=== PATIENT | male | born 1950 | race Caucasian/White ===

== ENCOUNTER 2018-06-11 13:55 | Inpatient (IN) ==
[2018-06-11] MEDS ORDERED: 0.9 % Sodium Chloride 1,000 ML IVC ONE (14:25)
--- NOTE | 2018-06-11 14:31 | Emergency Department Note ---
Disposition Clinical Impression: Colitis Elevated WBC count Qualifiers: Leukocytosis type: unspecified Qualified Code(s): D72.829 - Elevated white blood cell count, unspecified Disposition: Admitted As Inpatient Condition: Good [facility]: [facility]Primary Care Provider[facility] - Anurag Lopez DO [Family Provider] - Forms: ED Satisfaction Letter, Work/School Release Time of Disposition: 15:48 General Adult HPI - General Chief complaint: ED Abdominal Pain Stated complaint: ischemic IBS Time Seen by Provider: 06/11/18 14:02 Source: patient, EMS Limitations: no limitations Nursing Notes Reviewed: Yes Vital Signs Reviewed: Yes - History of Present Illness HPI Narrative: 67 year old white male presents for weakness, diarrhea, and blurred vision for 1 week. Patient is sent from [place] where they did a workup and found colitis on CT abd/pelvis. Patient states "normal" diarrhea, no blood or mucus. Reports associated symptoms of feeling tired and abdominal bloating "on the surface." Denies any pain. Blurred vision occurs when he wakes up in the morning. Things look blurry for a few minutes, and then it clears up. Also reports lightheadedness and dizziness when he gets up, bends over, or looks up. Explains that dizziness means he feels he could fall. Denies any fall. Denies feeling unbalanced, syncope, or spinning sensation. Medical history includes diabetes, diabetic retinopathy, and vertigo. Denies nausea, vomiting, abdominal pain, fever, weight loss, recent illness, swelling, auditory changes. Pain Scale: 0 - Related Data Home Medications Medication Instructions Recorded Confirmed Ascorbate Calcium [Vitamin C] 500 mg PO DAILY 06/11/18 06/11/18 Aspirin [Adult Aspirin] 81 mg PO DAILY 06/11/18 06/11/18 Atorvastatin [Lipitor] 40 mg PO HS 06/11/18 06/11/18 Cholecalciferol (D-3) [Vitamin D] 5,000 unit PO DAILY 06/11/18 06/11/18 Insulin Glargine,Hum.rec.anlog 20 - 25 unit SQ QPM 06/11/18 06/11/18 [Lantus Solostar] Insulin Glargine,Hum.rec.anlog 50 unit SQ QAM 06/11/18 06/11/18 [Lantus Solostar] Lisinopril [Zestril] 10 mg PO QAM 06/11/18 06/11/18 Lisinopril [Zestril] 20 mg PO QPM 06/11/18 06/11/18 Metformin HCl [Glucophage] 1,000 mg PO BID 06/11/18 06/11/18 Metoprolol Succinate [Toprol Xl] 50 mg PO DAILY 06/11/18 06/11/18 Multivit-Min/FA/Lycopen/Lutein 1 tab PO DAILY 06/11/18 06/11/18 [Centrum Silver Tablet] glipiZIDE [Glipizide] 10 mg PO DAILY 06/11/18 06/11/18 Allergies Allergy/AdvReac Type Severity Reaction Status Date / Time No Known Allergies Allergy Verified 06/11/18 14:13 All systems ED: reviewed and negative except as stated. Past Medical History - Past Medical History Medical history: Reports: diabetes, hyperlipidemia, hypertension, myocardial infarction - Social History Smoking Status: Former smoker Alcohol use: Reports: rarely Drug use: Reports: none Physical Exam - General Limitations: no limitations General appearance: alert, in no apparent distress - Head Head exam: atraumatic, normocephalic, normal inspection - Eye Eye exam: Present: normal appearance, PERRL, EOMI - ENT ENT exam: normal exam, normal oropharynx, mucous membranes moist - Neck Neck exam: Present: normal inspection, full ROM, trachea midline - Chest Chest inspection: Present: normal inspection, symmetric chest wall rise - Respiratory Respiratory exam: Present: normal lung sounds bilaterally - Cardiovascular Cardiovascular exam: Present: regular rate, normal rhythm, normal heart sounds - Abdominal Exam Abdominal exam: Present: soft, Non-Tender. Absent: tenderness, distention, guarding, rebound, rigidity - Extremities Exam Extremities exam: Present: normal inspection, full ROM. Absent: tenderness, pedal edema - Neurological Exam Neurological exam: Present: alert, oriented X3, CN II-XII intact - Psychiatric Psychiatric exam: Present: normal affect, normal mood - Skin Skin exam: Present: warm, dry, intact, normal color Course Course Narrative: 67 year old male presents for diarrhea, weakness, and blurred vision for 1 week. Patient is sent to ED from [place] urgent care for colitis. Patient denies any abdominal pain. Patient is alert and oriented, hemodynamically stable, and of non-toxic appearance. On exam, abdomen is soft and nondistended with normal bowel sounds. There is no pain to palpation. Medical records from [place] urgent care reviewed. Creatinine elevated 1.32, GFR 57.2. Metabolic panel otherwise unremarkable. WBC elevated 25.2 with elevated neutrophils 83.7. Lactic acid 1.6. UA negative. CXR unremarkable. CT abd/pelvis reveals diffuse colonic wall thickening with surrounding inflammatory change and mild pericolonic adenopathy. Could be infectious colitis, Crohn's disease, ulcerative colitis, or ischemic colitis. IVF fluids given at [place] urgent care. Medical history of sarcoid. Denies history of leukemia or lymphoma. Will order EKG, and troponin and provide IVF. - Reevaluation(s) Reevaluation #1: EKG shows no signs of ischemia or infarction. Troponin negative. Will check C. diff. Will admit for colitis and elevated WBC with left shift. Spoke with hospitalist Dr. Rand who agrees to admit. Dr. Rand recommends starting IV flagyl pending C.diff results. Time: 15:46 Vital Signs Temperature 98.2 F 06/11/18 13:56 Pulse Rate 81 06/11/18 13:56 Respiratory Rate 17 06/11/18 13:56 Blood Pressure 148/69 06/11/18 13:56 O2 Sat by Pulse Oximetry 99 06/11/18 13:56 Temperature 98.2 F 06/11/18 13:56 Pulse Rate 81 06/11/18 13:56 Respiratory Rate 17 06/11/18 13:56 Blood Pressure 148/69 06/11/18 13:56 O2 Sat by Pulse Oximetry 99 06/11/18 13:56 Oxygen Delivery Oxygen Delivery Room Air Medical Decision Making - Medical Records Medical records reviewed: Yes I reviewed the patient's medical records. - Lab Data Lab results reviewed: Yes I reviewed the patient's lab results. Lab Results 06/11/18 Range/Units 14:35 Troponin I < 0.03 (< 0.04) ng/mL - Radiology Data Radiology results reviewed: Yes I reviewed the patient's radiology results. - EKG Data EKG #1 EKG attestation: Yes I reviewed and interpreted this EKG. EKG results narrative: EKG 06/11/2018 14:52. Sinus rhythm. Heart rate 69. No ST segment elevation or depression. No comparison EKG.
--- NOTE | 2018-06-11 14:42 | Emergency Department Note ---
Disposition Clinical Impression: Colitis, Elevated WBC count Disposition: Admitted As Inpatient Condition: Good General Adult HPI - General Chief complaint: ED Abdominal Pain Stated complaint: ischemic IBS Time Seen by Provider: 06/11/18 14:02 Source: patient, EMS Limitations: no limitations Nursing Notes Reviewed: Yes Vital Signs Reviewed: Yes - History of Present Illness Pain Scale: 0 - Related Data Home Medications Medication Instructions Recorded Confirmed Ascorbate Calcium [Vitamin C] 500 mg PO DAILY 06/11/18 06/11/18 Aspirin [Adult Aspirin] 81 mg PO DAILY 06/11/18 06/11/18 Atorvastatin [Lipitor] 40 mg PO HS 06/11/18 06/11/18 Cholecalciferol (D-3) [Vitamin D] 5,000 unit PO DAILY 06/11/18 06/11/18 Insulin Glargine,Hum.rec.anlog 20 - 25 unit SQ QPM 06/11/18 06/11/18 [Lantus Solostar] Insulin Glargine,Hum.rec.anlog 50 unit SQ QAM 06/11/18 06/11/18 [Lantus Solostar] Lisinopril [Zestril] 10 mg PO QAM 06/11/18 06/11/18 Lisinopril [Zestril] 20 mg PO QPM 06/11/18 06/11/18 Metformin HCl [Glucophage] 1,000 mg PO BID 06/11/18 06/11/18 Metoprolol Succinate [Toprol Xl] 50 mg PO DAILY 06/11/18 06/11/18 Multivit-Min/FA/Lycopen/Lutein 1 tab PO DAILY 06/11/18 06/11/18 [Centrum Silver Tablet] glipiZIDE [Glipizide] 10 mg PO DAILY 06/11/18 06/11/18 Allergies Allergy/AdvReac Type Severity Reaction Status Date / Time No Known Allergies Allergy Verified 06/11/18 14:13 Past Medical History - Past Medical History Medical history: Reports: diabetes, hyperlipidemia, hypertension, myocardial infarction - Social History Smoking Status: Former smoker Alcohol use: Reports: rarely Drug use: Reports: none Physical Exam - General Limitations: no limitations General appearance: alert, in no apparent distress Course Vital Signs Temperature 98.2 F 06/11/18 13:56 Pulse Rate 81 06/11/18 13:56 Respiratory Rate 17 06/11/18 13:56 Blood Pressure 148/69 06/11/18 13:56 O2 Sat by Pulse Oximetry 99 06/11/18 13:56 Temperature 98.2 F 06/11/18 13:56 Pulse Rate 81 06/11/18 13:56 Respiratory Rate 17 06/11/18 17:01 Blood Pressure 128/57 06/11/18 17:01 O2 Sat by Pulse Oximetry 99 06/11/18 13:56 Oxygen Delivery Oxygen Delivery Room Air Medical Decision Making - MDM Narrative Medical decision making narrative: 1536 hrs: will order C.diff and admit. - Lab Data Lab Results 06/11/18 06/11/18 Range/Units 14:35 16:42 Troponin I < 0.03 (< 0.04) ng/mL Stl C. diff Tox B Gene Positive A (Negative) Attestation Statement - Attestation Attestation: This documentation is done with the assistance of Dragon dictation. Despite efforts made to ensure accuracy, there may be inaccuracies in director part or spelling and typographical errors. I examined this patient and my medical decision-making was reviewed with the Resident Physician. I agree with the documented findings, disposition and treatment plan as described except to the extent set forth below. Patient seen and evaluated on arrival Dr. Recio and myself, I agree with her evaluation and management plan, supervise care the patient's stay. Patient presents today with the [facility] they told us he had ischemic colitis. However he is not having much abdominal pain he has had some vomiting and diarrhea. They did a scan and lab work there. He has a leukocytosis greater than and then 25,000. His CT look like colitis with multiple differentials. But these were not confirmed for ischemic colitis. With his exam here and does not appear there is having any severe pain. We are going to get a troponin EKG on him then we will bring him into the hospital. For further management disposition.
[2018-06-11] MEDS ORDERED: MetroNIDAZOLE 500 MG/100 ML 500 MG/100 ML BAG IVPB ONE (15:44)
[2018-06-11] MEDS: 0.9 % Sodium Chloride w KCl 20 MEQ/1,000 ML MLS IVC SCH (18:39)
[2018-06-11] MEDS: *HR* Metformin 500 MG TABLET PO SCH (18:40)
[2018-06-11] MEDS: Cholestyramine 4 GM POWD.PACK PO SCH ×2 (18:45→22:34)
[2018-06-11 18:52] LABS: Basophils # 0.1 K/mcL (0.0-0.2); Basophils % 0.3 %; Eosinophils # 0.2 K/mcL (0.0-0.6); Eosinophils % 0.9 %; Hematocrit 38.4 % (37.5-50.1); Hemoglobin 13.7 g/dL (12.9-16.9); Immature Granulocytes % 0.8 % (0-4); Lymphocytes # 3.1 K/mcL (0.6-4.6); Lymphocytes % 14.8 %; Mean Corpuscular HGB Conc 35.7 g/dL (31.6-35.5); Mean Corpuscular Hemoglobin 31.4 pg (28.0-33.3); Mean Corpuscular Volume 88.1 fL (83.0-100.0); Mean Platelet Volume 10.5 fL (9.4-12.4); Monocytes # 1.4 K/mcL (0.0-1.3); Monocytes % 6.8 %; Neutrophils # 16.1 K/mcL (1.6-8.9); Platelet Count 315 K/mcL (140-400); Red Blood Count 4.36 M/mcL (4.19-5.50); Red Cell Distribution Width 13.8 % (11.5-14.5); Segmented Neutrophils % 76.4 %
[2018-06-11] MEDS ORDERED: *HR* Dextrose 50 % in Water (Syg) 50 ML SYRINGE IVP PRN (18:56)
[2018-06-11] MEDS ORDERED: Dextrose Gel 15 GM/37.5 ML TUBE PO PRN ×2 (18:56)
[2018-06-11] MEDS ORDERED: D5% in Water 1,000 ML IVC PRN (18:56)
[2018-06-11 19:05] LABS: BUN/Creatinine Ratio 32 (6-26); Blood Urea Nitrogen 28 mg/dL (8-23); Carbon Dioxide 16 mEq/L (23-29); Chloride 113 mEq/L (98-107); Glucose 59 mg/dL (70-105); Magnesium 1.6 mg/dL (1.6-2.6); Osmolality,Calculated 287 (280-300); Potassium 4.5 mEq/L (3.5-5.1); Sodium 137 mEq/L (136-145); eGFR For Non-African Americans > 60 (> 60)
[2018-06-11] MEDS: Insulin LISPRO 300 UNITS/3 ML VIAL SQ SCH (20:40)
[2018-06-11] MEDS: Insulin DETEMIR 100 UNIT/ML X5UNITS SQ SCH (20:41)
[2018-06-11] MEDS ORDERED: MetroNIDAZOLE 500 MG/100 ML 500 MG/100 ML BAG IVPB SCH (22:00)
--- NOTE | 2018-06-11 22:12 | Internal Med History&Physical ---
Date of Encounter: 06/11/18 Time of Encounter: 19:00 Internal Medicine - H&P: HPI Chief complaint: DIARRHEA Admitted From: Home Plans for Post Hospital Care: Home History of present illness: Mr. Hays is a 67 year old male. HPI: The patient came to the emergency room complaining of diarrheastarted to 710 days ago. It is not associated with abdominal pain, nausea or vomiting. Denies fever and chills. It was initially at least 12 loose bowel movements per day; decrease to average 6 per day in the last few daysafter he has started using Imodium. The stool is very watery. He has average one loose bowel movement per nightin the last several days. He was diagnosed with irritable bowel syndrome at his 40s. He does have days when he may have a few/several loose bowel movements. He does not have her periods of constipation. The patient denies taking antibiotics in the last diffuse last several months. He denies visiting nursing homes recently. He has been treated for type 2 diabetes mellitus (insulin-dependent), hypertension and hyperlipidemia. He was diagnosed with a myocardial infarction about 15 years ago. They did cardiac catheterization; inserted to one coronary stent. He quit using tobacco in 1990. He used to smoke average one pack of cigarettes per day; started as a teenager. Denies alcohol use. Denies drugS use. REVIEW OF SYSTEMS: All 14 organ systems were reviewed by me with the patient. Positive and pertinent negative findings are listed above. The rest of organ systems is negative. PHYSICAL EXAM: Skin: Free of rash and discoloration. Eyes: Sclera is white. There is no discharge from eyes. ENMT: Oral/pharyngeal mucosa is normal in appearance. There is no discharge from nose or ears. Respiratory: Normal breath sounds with no crackles and wheezes bilaterally. CV: Heart is regular with no gallop or murmur. GI: Abdomen is rounded. It is soft with no palpable mass or visceromegaly. : There is no tenderness in patient's flanks bilaterally. Neuro exam: He has good strength in upper and lower extremities. He has normal eye movements. Psychiatric: He has normal affect. His thought process is appropriate to the situation. The patient is tested positive for C. difficile infection using stool C. difficile toxin B gene PCR. His CBC shows hemoglobin of 13.7 with WBC of 21.1 thousand. Sodium is 137 with potassium 4.5. Creatinine is 0.87. His random glucose is 59. Magnesium is 1.6. A/P: C. difficile colitis. We will continue diabetic diet. We will offer him IV fluids with potassium chloride and IV metronidazole. He will be on Questran 4 g by mouth 4 times a day. IBS. Presently covered by C. difficile infection. Type 2 diabetes mellitus, insulin-dependent. We will keep him on diabetic diet. Insulin Levemir and when necessary Humalog. Coronary artery disease. Stable/controlled. We will keep him on Toprol-XL, Lipitor and aspirin. Past Med Surg Social Fam HX - Past Medical History Medical history: diabetes, hyperlipidemia, hypertension, myocardial infarction Psychiatric history: no psych history - Past Surgical History Additional surgical history: Stent & Balloon. - Social History Smoking Status: Former smoker Packs per day: 1 Smokeless Tobacco Status: No Alcohol use: rarely Drug use: none - Family History Mother Living Status: Hx Family Cancer: Yes (throat cancer at 49) Father Living Status: Internal Medicine - H&P: Meds Ascorbate Calcium [Vitamin C] 500 mg PO DAILY 06/11/18 [History] Aspirin [Adult Aspirin] 81 mg PO DAILY 06/11/18 [History] Atorvastatin [Lipitor] 40 mg PO HS 06/11/18 [History] Cholecalciferol (D-3) [Vitamin D] 5,000 unit PO DAILY 06/11/18 [History] Insulin Glargine,Hum.rec.anlog [Lantus Solostar] 20 - 25 unit SQ QPM 06/11/18 [ History] Insulin Glargine,Hum.rec.anlog [Lantus Solostar] 50 unit SQ QAM 06/11/18 [ History] Lisinopril [Zestril] 10 mg PO QAM 06/11/18 [History] Lisinopril [Zestril] 20 mg PO QPM 06/11/18 [History] Metformin HCl [Glucophage] 1,000 mg PO BID 06/11/18 [History] Metoprolol Succinate [Toprol Xl] 50 mg PO DAILY 06/11/18 [History] Multivit-Min/FA/Lycopen/Lutein [Centrum Silver Tablet] 1 tab PO DAILY 06/11/18 [ History] glipiZIDE [Glipizide] 10 mg PO DAILY 06/11/18 [History] 3 Allergy/AdvReac Type Severity Reaction Status Date / Time No Known Allergies Allergy Verified 06/11/18 14:13 - Constitutional Vitals: Temp Pulse Resp BP Pulse Ox 98.1 F 74 17 119/65 99 06/11/18 19:10 06/11/18 19:10 06/11/18 19:10 06/11/18 19:10 06/11/18 19:10 General appearance: Present: A&O X 3, no acute distress, answers questions appropriately Exam: xxx Internal Med - H&P Results - Labs CBC & Chem 7: 06/11/18 18:41 06/11/18 18:41 Labs: Short CBC 06/11/18 Range/Units 18:41 WBC 21.1 H (4.3-11.1) K/mcL Hgb 13.7 (12.9-16.9) g/dL Hct 38.4 (37.5-50.1) % Plt Count 315 (140-400) K/mcL Neutrophils # 16.1 H (1.6-8.9) K/mcL BMP 06/11/18 18:41 Sodium 137 Potassium 4.5 Chloride 113 H Carbon Dioxide 16 L BUN 28 H Creatinine 0.87 Glucose 59 L Calcium 8.0 L - Assessment and plan (1) C. 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 Diabetes mellitus complication status: without complication Qualified Code(s): E11.9 - Type 2 diabetes mellitus without complications; Z79.4 - oysterman (current) use of insulin (4) CAD (coronary artery disease) Current Visit: Yes Status: Chronic Qualifiers: Coronary Disease-Associated Artery/Lesion type: [place] artery Associated angina: without angina Qualified Code(s): I25.10 - Atherosclerotic heart disease of [place] coronary artery without angina pectoris (5) HTN (hypertension) Current Visit: Yes Status: Acute Qualifiers: Hypertension type: essential hypertension Qualified Code(s): I10 - Essential (primary) hypertension - Time Spent With Patient Total time spent is greater than 50% in coordination of care (as documented) at patient's floor/unit and/or counseling patient: 25 - 35 minutes
[2018-06-12] MEDS: 0.9 % Sodium Chloride w KCl 20 MEQ/1,000 ML MLS IVC SCH (05:44)
[2018-06-12] MEDS ORDERED: MetroNIDAZOLE 500 MG/100 ML 500 MG/100 ML BAG IVPB SCH (06:00)
[2018-06-12 06:31] LABS: Basophils # 0.1 K/mcL (0.0-0.2); Basophils % 0.4 %; Eosinophils # 0.2 K/mcL (0.0-0.6); Eosinophils % 1.3 %; Hematocrit 35.8 % (37.5-50.1); Immature Granulocytes % 0.5 % (0-4); Lymphocytes # 2.3 K/mcL (0.6-4.6); Lymphocytes % 14.8 %; Mean Corpuscular HGB Conc 33.8 g/dL (31.6-35.5); Mean Corpuscular Hemoglobin 30.4 pg (28.0-33.3); Mean Corpuscular Volume 89.9 fL (83.0-100.0); Mean Platelet Volume 10.2 fL (9.4-12.4); Monocytes % 6.3 %; Neutrophils # 12.1 K/mcL (1.6-8.9); Platelet Count 321 K/mcL (140-400); Red Blood Count 3.98 M/mcL (4.19-5.50); Red Cell Distribution Width 13.9 % (11.5-14.5); Segmented Neutrophils % 76.7 %
[2018-06-12 06:32] LABS: Hemoglobin 12.1 g/dL (12.9-16.9)
[2018-06-12 06:55] LABS: BUN/Creatinine Ratio 28 (6-26); Blood Urea Nitrogen 23 mg/dL (8-23); Calcium 7.9 mg/dL (8.6-10.3); Carbon Dioxide 21 mEq/L (23-29); Chloride 112 mEq/L (98-107); Glucose 53 mg/dL (70-105); Magnesium 1.5 mg/dL (1.6-2.6); Osmolality,Calculated 289 (280-300); Sodium 139 mEq/L (136-145); eGFR For Non-African Americans > 60 (> 60)
[2018-06-12] MEDS: Insulin LISPRO 300 UNITS/3 ML VIAL SQ SCH ×4 (08:20→22:17)
[2018-06-12] MEDS: Insulin DETEMIR 100 UNIT/ML X5UNITS SQ SCH ×2 (08:47→22:24)
[2018-06-12] MEDS: Aspirin Enteric Coated 81 MG Tablet PO SCH (08:51)
[2018-06-12] MEDS: *HR* Metformin 500 MG TABLET PO SCH ×2 (08:51→17:23)
[2018-06-12] MEDS: Metoprolol XL (24 HR) Succ 50 MG TAB.ER.24H PO SCH (08:51)
[2018-06-12] MEDS: Multivit/Ca/Min/Fe/FA 1 TAB TABLET PO SCH (08:51)
[2018-06-12] MEDS: Cholestyramine 4 GM POWD.PACK PO SCH ×2 (08:52→12:49)
--- NOTE | 2018-06-12 08:58 | Electrocardiograph Report ---
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
--- NOTE | 2018-06-12 09:05 | Internal Med Progress Note ---
Hospitalist Progress Note - Encounter Date of Encounter: 06/12/18 Time of Encounter: 09:03 - Subjective Interval History: Patient seen and examined at bedside today, no acute changes overnight. Continued to report watery bowel movements reporting approximately 4-5 BMs every 24 hours. Denies any nausea, vomiting, abdominal pain. Admits to dizziness with change in position. Denies any further concerns at this time. Discussed plan of care, denies any further questions - Exam Vitals: Temp Pulse Resp BP Pulse Ox 97.6 F 78 17 153/73 97 06/12/18 07:27 06/12/18 07:27 06/12/18 07:27 06/12/18 07:27 06/12/18 07:27 Exam: PHYSICAL EXAMINATION: GENERAL: The patient is a well-developed, well-nourished male in no apparent distress. He is alert and oriented x3. HEENT: Head is normocephalic and atraumatic. Extraocular muscles are intact. Pupils are equal, round, and reactive to light and accommodation. Nares appeared normal. Mouth is well hydrated and without lesions. Mucous membranes are moist. Posterior pharynx clear of any exudate or lesions. NECK: Supple. No carotid bruits. No lymphadenopathy or thyromegaly. LUNGS: Clear to auscultation. HEART: Regular rate and rhythm without murmur. ABDOMEN: Soft, nontender, hyperactive bowel sounds. Mild abdominal distention EXTREMITIES: Without any cyanosis, clubbing, rash, lesions or edema. NEUROLOGIC: Cranial nerves II through XII are grossly intact. SKIN: No ulceration or induration present. - Assessment and Plan (1) C. difficile colitis Current Visit: Yes Status: Acute Assessment and Plan: Complaints of loose watery stools approximately 10-12 daily for the last 7-10 days Positive for C. difficile colitis Started on oral metronidazole 4 times a day--continues to have watery stools for -[address] patient on oral vancomycin today and discontinue metronidazole Continue with IVF, encourage oral intake Discharge when frequency of stools have improved Leukocytosis improving today, WBC 15.7, monitor BMP daily (2) IBS (irritable bowel syndrome) Current Visit: Yes Status: Chronic (3) Type 2 diabetes mellitus Current Visit: Yes Status: Acute Assessment and Plan: Per history periodic hypoglycemia on current regimen Decrease metformin dose to 500 mg twice a day Closely monitor blood glucose and adjust as necessary (4) CAD (coronary artery disease) Current Visit: Yes Status: Chronic Assessment and Plan: Continue aspirin, statin, cholestyramine, lisinopril and metoprolol (5) HTN (hypertension) Current Visit: Yes Status: Acute Assessment and Plan: Stable, continue anti-HTN medications DVT Prophylaxis: Increase activity - Time Spent with Patient Total time spent is greater than 50% in coordination of care (as documented) at patient's floor/unit and/or counseling patient: less than 15 minutes Plan of Care Discussed with: patient Internal Medicine: Result - Labs CBC & Chem 7: 06/12/18 05:58 06/12/18 05:58 Labs: Short CBC 06/11/18 06/12/18 Range/Units 18:41 05:58 WBC 21.1 H 15.7 H (4.3-11.1) K/mcL Hgb 13.7 12.1 L D (12.9-16.9) g/dL Hct 38.4 35.8 L (37.5-50.1) % Plt Count 315 321 (140-400) K/mcL Neutrophils # 16.1 H 12.1 H (1.6-8.9) K/mcL BMP 06/11/18 06/12/18 18:41 05:58 Sodium 137 139 Potassium 4.5 4.0 Chloride 113 H 112 H Carbon Dioxide 16 L 21 L BUN 28 H 23 Creatinine 0.87 0.81 Glucose 59 L 53 L Calcium 8.0 L 7.9 L Consult Discharge Plan - Plan [facility]errals: [facility] [Primary Care Provider] - Anurag Lopez DO [Family Provider] - (2) IBS (irritable bowel syndrome) Qualifiers: Irritable bowel syndrome type: with diarrhea Qualified Code(s): K58.0 - Irritable bowel syndrome with diarrhea (3) Type 2 diabetes mellitus Qualifiers: 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
[2018-06-12] MEDS: Vancomycin Oral Soln 125 MG/2.5 ML UDC PO SCH ×4 (09:38→22:24)
[2018-06-12] MEDS ORDERED: Lisinopril 20 MG TABLET PO SCH (18:00)
[2018-06-13 07:13] VITALS: BP 117/70
[2018-06-13] MEDS: *HR* Metformin 500 MG TABLET PO SCH (08:00)
[2018-06-13] MEDS: Vancomycin Oral Soln 125 MG/2.5 ML UDC PO SCH ×2 (08:00→12:06)
[2018-06-13] MEDS: Metoprolol XL (24 HR) Succ 50 MG TAB.ER.24H PO SCH (08:00)
[2018-06-13] MEDS: Aspirin Enteric Coated 81 MG Tablet PO SCH (08:00)
[2018-06-13] MEDS: Multivit/Ca/Min/Fe/FA 1 TAB TABLET PO SCH (08:00)
[2018-06-13] MEDS: Insulin LISPRO 300 UNITS/3 ML VIAL SQ SCH ×2 (08:00→12:06)
[2018-06-13] MEDS: Insulin DETEMIR 100 UNIT/ML X5UNITS SQ SCH (08:11)
[2018-06-13 09:17] LABS: Basophils # 0.1 K/mcL (0.0-0.2); Basophils % 0.5 %; Eosinophils # 0.2 K/mcL (0.0-0.6); Eosinophils % 1.5 %; Hematocrit 39.2 % (37.5-50.1); Hemoglobin 13.2 g/dL (12.9-16.9); Immature Granulocytes % 0.6 % (0-4); Lymphocytes # 2.2 K/mcL (0.6-4.6); Lymphocytes % 14.5 %; Mean Corpuscular HGB Conc 33.7 g/dL (31.6-35.5); Mean Corpuscular Hemoglobin 30.6 pg (28.0-33.3); Mean Platelet Volume 10.3 fL (9.4-12.4); Monocytes % 6.7 %; Neutrophils # 11.8 K/mcL (1.6-8.9); Platelet Count 366 K/mcL (140-400); Red Blood Count 4.31 M/mcL (4.19-5.50); Red Cell Distribution Width 13.8 % (11.5-14.5); Segmented Neutrophils % 76.2 %
[2018-06-13 09:28] LABS: BUN/Creatinine Ratio 21 (6-26); Blood Urea Nitrogen 17 mg/dL (8-23); Calcium 8.1 mg/dL (8.6-10.3); Carbon Dioxide 19 mEq/L (23-29); Chloride 110 mEq/L (98-107); Glucose 212 mg/dL (70-105); Osmolality,Calculated 290 (280-300); Potassium 4.5 mEq/L (3.5-5.1); Sodium 136 mEq/L (136-145); eGFR For Non-African Americans > 60 (> 60)
--- NOTE | 2018-06-13 14:31 | Discharge Summary ---
- NOTES TO OUTPATIENT PROVIDER Notes to Outpatient Provider: Presented with loose watery bowel movements for the last 7-10 days prior to arrival. Diagnosed with C. difficile colitis. Treated with oral vancomycin expected duration of treatment 10 days total Orders not resulted at time of discharge: Pending orders 06/14/18 04:00 Basic Metabolic Panel AM 0400 Complete Blood Count [HEME] AM 0400 06/15/18 04:00 Basic Metabolic Panel AM 0400 Complete Blood Count [HEME] AM 0400 06/16/18 04:00 Basic Metabolic Panel AM 0400 Complete Blood Count [HEME] AM 0400 Date of Encounter: 06/13/18 Time of Encounter: 14:25 - Discharge Diagnosis (1) C. difficile colitis Priority: Primary Status: Acute Assessment and Plan: Complaints of loose watery stools approximately 10-12 daily for the last 7-10 days Positive for C. difficile colitis Started on oral metronidazole 4 times a day--continues to have watery stools for -[address] patient on oral vancomycin today and discontinue metronidazole Continue with IVF, encourage oral intake Discharge when frequency of stools have improved Leukocytosis improving today, WBC 15.7, monitor BMP daily (2) IBS (irritable bowel syndrome) Priority: Secondary Status: Chronic Qualifiers: Irritable bowel syndrome type: with diarrhea Qualified Code(s): K58.0 - Irritable bowel syndrome with diarrhea (3) Type 2 diabetes mellitus Priority: Secondary Status: Acute Qualifiers: Diabetes mellitus terminal operator insulin use: with [facility]p use Diabetes mellitus complication status: without complication Qualified Code(s): E11.9 - Type 2 diabetes mellitus without complications; Z79.4 - senior living (current) use of insulin (4) CAD (coronary artery disease) Priority: Secondary Status: Chronic Qualifiers: Coronary Disease-Associated Artery/Lesion type: [place] artery Associated angina: without angina Qualified Code(s): I25.10 - Atherosclerotic heart disease of [place] coronary artery without angina pectoris (5) HTN (hypertension) Priority: Secondary Status: Acute Qualifiers: Hypertension type: essential hypertension Qualified Code(s): I10 - Essential (primary) hypertension Hospital course: Mr. Hays is a 67 year old male who presented with a 7-10 day history of diarrhea reporting approximately 12 loose bowel movements a day. He was discovered to have Clostridium difficile colitis and was subsequently treated with oral antibiotics. His condition improved throughout the stay and frequency in bowel movements decreased. He is being sent home on oral vancomycin 125 mg 4 times a day for 9 additional days. Patient is well hydrated and hemodynamically stable at time of discharge. He has had an uneventful hospital course without any complications. Leukocytosis improving at time of discharge. He has been afebrile and nontoxic appearing. Additionally while inpatient he was treated for type 2 diabetes with IV insulin and will be transitioned back to home insulin regimen. While inpatient he was found to be hypoglycemic at times. I have decreased his dose of oral hypoglycemics and provided education on such. While inpatient and continue his aspirin, statin, lisinopril and metoprolol for his coronary artery disease, these have been continued at discharge. Additionally, he has history of hypertension and his home anti-HTN medications were resumed while inpatient and will be resumed at discharge as well. I discussed with the patient potential complications and risks of diagnosis of Clostridium difficile and has been sent home with educational materials. The patient verbalized understanding denies any further questions. Instructed to return to the ED should his condition persists or worsen. Additionally, he has been instructed to follow-up with his PCP within 1 week of discharge. Discharge discussed with: patient, family, nurse - Time Spent with Patient Total time spent providing and/or coordinating discharge services: Less than 30 minutes - Discharge Medications Prescriptions: metFORMIN [Glucophage] 500 mg PO BIDWM 30 Days #60 tablet Vancomycin Oral Soln [Firvanq] 125 mg PO QID 10 Days #1 [facility] [place] Medications: Ascorbate Calcium [Vitamin C] 500 mg PO DAILY 06/11/18 [History] Aspirin [Adult Aspirin] 81 mg PO DAILY 06/11/18 [History] Atorvastatin [Lipitor] 40 mg PO HS 06/11/18 [History] Cholecalciferol (D-3) [Vitamin D] 5,000 unit PO DAILY 06/11/18 [History] Insulin Glargine,Hum.rec.anlog [Lantus Solostar] 20 - 25 unit SQ QPM 06/11/18 [ History] Insulin Glargine,Hum.rec.anlog [Lantus Solostar] 50 unit SQ QAM 06/11/18 [ History] Lisinopril [Zestril] 10 mg PO QAM 06/11/18 [History] Lisinopril [Zestril] 20 mg PO QPM 06/11/18 [History] Metoprolol Succinate [Toprol Xl] 50 mg PO DAILY 06/11/18 [History] Multivit-Min/FA/Lycopen/Lutein [Centrum Silver Tablet] 1 tab PO DAILY 06/11/18 [ History] glipiZIDE [Glipizide] 10 mg PO DAILY 06/11/18 [History] Vancomycin Oral Soln [Firvanq] 125 mg PO QID 10 Days #1 udc 06/13/18 [Rx] metFORMIN [Glucophage] 500 mg PO BIDWM 30 Days #60 tablet 06/13/18 [Rx] Allergies/Adverse Reactions: 3 Allergy/AdvReac Type Severity Reaction Status Date / Time No Known Allergies Allergy Verified 06/11/18 14:13 Date of admission: 06/11/18 18:17 Primary care physician: [facility] Discharging clinician: Wilmar Spencer Anticipated date of discharge: 06/13/18 - Constitutional Vitals: Temp Pulse Resp BP Pulse Ox 98.3 F 69 16 117/70 96 06/13/18 11:35 06/13/18 11:35 06/13/18 11:35 06/13/18 11:35 06/13/18 11:35 General appearance: Present: A&O X 3, no acute distress, answers questions appropriately Exam: PHYSICAL EXAMINATION: GENERAL: The patient is a well-developed, well-nourished male in no apparent distress. He is alert and oriented x3. HEENT: Head is normocephalic and atraumatic. Extraocular muscles are intact. Pupils are equal, round, and reactive to light and accommodation. Nares appeared normal. Mouth is well hydrated and without lesions. Mucous membranes are moist. Posterior pharynx clear of any exudate or lesions. NECK: Supple. No carotid bruits. No lymphadenopathy or thyromegaly. LUNGS: Clear to auscultation. HEART: Regular rate and rhythm without murmur. ABDOMEN: Soft, nontender, normal active bowel sounds. Mild abdominal distention, mild abdominal discomfort to palpation left and right lower quadrant EXTREMITIES: Without any cyanosis, clubbing, rash, lesions or edema. NEUROLOGIC: Cranial nerves II through XII are grossly intact. SKIN: No ulceration or induration present. - Patient Status Disposition: Home, Self-Care Condition: Good Functional capacity at discharge: independent ambulation Overall status at discharge: patient is progressing back to baseline - Discharge Instructions Follow Up With: Anurag Lopez DO [Family Provider] - 06/19/18 11:00 am [facility] [Primary Care Provider] - - Diet and Activity Activity: increase activity as tolerated, resume usual activities as tolerated Diet: advance to your usual diet
== END 2018-06-13 15:55 | disposition home or self-care (01) | DRG 373 ==
LOC: 3BNU 13:55 → EMEROOARM 13:55 → 3BNU 17:01
PROVIDERS: ADMIT Internal Medicine; ATTEND Internal Medicine